=== PATIENT | male | born 1985 | race Caucasian/White ===

== ENCOUNTER 2017-04-08 01:55 | Emergency (ER) | payer SELFPAY ==
[~2017-04-08] VITALS: Ht 182.9 cm; Wt 78.0 kg
[2017-04-08] MEDS ORDERED: ONDANSETRON ODT 8 MG ONE (02:17)
[2017-04-08] MEDS ORDERED: PLEASE ENTER ALLERGIES MC SCH ×2 (02:30)
[2017-04-08] MEDS ORDERED: ONDANSETRON ODT 8 MG PO ONE (02:30)
[2017-04-08] MEDS ORDERED: PLEASE ENTER HEIGHT AND WEIGHT MC SCH (02:30)
[2017-04-08 02:34] VITALS: BP 138/79
== END 2017-04-08 02:39 | disposition home or self-care (01) ==
LOC: ED 02:25
DX: F10.220 Alcohol dependence with intoxication, uncomplicated (principal)
CPT/HCPCS: 99283; Q0162